=== PATIENT | female | born 1995 | race Caucasian/White ===

== ENCOUNTER 2018-07-01 20:56 | Emergency (ER) | payer OTHER ==
[2018-07-02] MEDS ORDERED: RALTEGRAVIR 400 MG TAB (6 TAB/ER DISP) PO PRN (00:08)
[2018-07-02] MEDS ORDERED: EMTRICITABINE/TENOFOVIR 200-300 MG TAB (3 TAB/ER DISP) PO PRN (00:08)
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
[2018-07-02 00:16] VITALS: BP 122/65
[2018-07-02] MEDS ORDERED: DIPH/PERTUSS(ACELL)/TETANUS VAC/PF 0.5 ML SYR (>=10YO) IM ONE (00:31)
== END 2018-07-02 00:45 | disposition home or self-care (01) ==
LOC: ER 20:56
DX: T74.21XA Adult sexual abuse, confirmed, initial encounter (principal)
CPT/HCPCS: 90471; 90715; 99284